=== PATIENT | male | born 1965 | race Caucasian/White ===

== ENCOUNTER 2021-08-12 01:11 | Day surgery (SDC) | payer MEDICARE, SELFPAY ==
[2021-08-04 14:18] VITALS: BMI 39.8
[2021-08-12 06:53] VITALS: BP 191/115; PULSE 77; RESP 20; TEMP 36.3; O2SAT 98; BMI 38.5
[2021-08-12] MEDS: LACTATED RINGERS 1,000 ML 150 ML IV CONT (07:09)
[2021-08-12 07:11] VITALS: BP 149/72
[2021-08-12 07:11] LABS: Glucose Point of Care 163 mg/dl (65-105)
--- NOTE | 2021-08-12 07:29 | WPDANESEPPF ---
Anes - Initial Pre Proc Eval Procedure: Operation Date: 08/12/21 08:00 Proposed Procedures p Colonoscopy - Flaco Alonzo MD Date/Time: 08/12/21 07:29 Surgeon: Flaco Alonzo MD Pre Op Diagnosis: rectal bleeding Patient Data Age: 56 Gender: M Height: 1.7 m Weight: 111.4 kg Last Vital Signs Temp 36.3 C L 08/12/21 06:53 Pulse 77 08/12/21 06:53 Resp 20 08/12/21 06:53 BP 149/72 H 08/12/21 07:11 Pulse Ox 98 08/12/21 06:53 Allergies Allergy/AdvReac Type Severity Reaction Status Date / Time No Known Allergies Allergy Verified 08/12/21 06:59 Home Medications Medication Instructions Recorded Confirmed Type aspirin 325 mg PO DAILY 08/04/21 08/04/21 History atorvastatin 80 mg PO DAILY 08/04/21 08/04/21 History bupropion HCl 150 mg PO DAILY 08/04/21 08/04/21 History carvedilol 25 mg PO BID 08/04/21 08/04/21 History clonazepam 0.5 mg PO DAILY 08/04/21 08/04/21 History clopidogrel 75 mg PO DAILY 08/04/21 08/04/21 History empagliflozin [Jardiance] 25 mg PO DAILY 08/04/21 08/04/21 History ezetimibe 10 mg PO DAILY 08/04/21 08/04/21 History furosemide 40 mg PO DAILY 08/04/21 08/04/21 History glimepiride 2 mg PO DAILY 08/04/21 08/04/21 History icosapent ethyl [Vascepa] 1 g PO BID 08/04/21 08/04/21 History losartan 100 mg PO DAILY 08/04/21 08/04/21 History metformin 1,000 mg PO BID 08/04/21 08/04/21 History nitroglycerin 0.4 mg SUBLINGUAL PRN PRN 08/04/21 08/04/21 History omeprazole magnesium [Prilosec OTC] 20 mg PO DAILY 08/04/21 08/04/21 History spironolactone 50 mg PO DAILY 08/04/21 08/04/21 History Laboratory Tests 08/12/21 07:07 POC Capillary Glucose 163 mg/dl H mg/dl (65-105) Patient hx anesthesia problems: none Family hx anesthesia problems: none Results Review: All pre-operative results and documents have been reviewed as part of the pre-operative evaluation. [facility] Past Medical History Medical History (Updated 08/12/21 @ 07:30 by Bi Miguel MD) CAD (coronary artery disease) HTN (hypertension) Hyperlipidemia Obesity SABRINA on CPAP Surgical History Surgical History History of coronary artery stent placement Hx of CABG Social History Social History Smoking packs per day: 1 Smoking cigarettes per day: 20.0 Years smoked: 20 Smoking pack-years: 20.00 Smoking status: Former smoker Tobacco type: cigarettes Alcohol intake: current Substance use: never Substance use type: does not use Living arrangements: with family Spiritual care concerns: No Anes - Eval Final PreProcedure Day of Procedure 08/12/21 07:29 Patient weight: obese Heart: regular rate and rhythm Lungs: clear to auscultation Airway: Mallampati scale class II and special considerations poor dentition Neurological: alert and oriented Last oral intake: >/= 8 hours ASA classification: III Emergent: no Anesthetic plan: proceed Anesthesia type and monitoring: general GIVS and standard monitoring Results Review: All pre-operative results and documents have been reviewed as part of the pre-operative evaluation. Informed Consent: The patient's anesthetic plan and its attendant risks and benefits were discussed with the patient/family/POA. Questions were solicited and answers provided to the satisfaction of the patient/family/POA.
--- NOTE | 2021-08-12 07:47 | PM.HPGS ---
History of Present Illness History of Present Illness Consent: Risks, benefits, and alternatives have been discussed and questions answered. Patient agrees to proceed with procedure. Chief complaint: rectal bleeding Narrative: Calvin Chappell is a 56 year old male here for first colonoscopy, noted intermittent blood with stools, also has chronic loose stool. Cologuard 2019 negative. Review of Systems Constitutional: Constitutional: Denies headache(s) and Denies weakness Eyes: Eyes: Denies blurry vision ENT: Reports Normal hearing present, Denies headache(s) and Denies neck pain Cardiovascular: Cardiovascular: Denies chest pain and Denies dyspnea Respiratory: Respiratory: Denies dyspnea Gastrointestinal: Gastrointestinal: Reports no additional gastrointestinal complaints Genitourinary: Genitourinary: Denies dysuria Musculoskeletal: Musculoskeletal: Denies neck pain Integumentary/Breasts: Skin/Breast: Denies dry skin Neurologic: Reports Normal hearing present, Denies headache(s) and Denies weakness Psychiatric: Psychiatric: Denies anxiety Endocrine: Endocrine: Denies change in body appearance Hematologic/Lymphatic: Hematologic/Lymphatic: Denies easy bleeding Allergic/Immunologic: Allergic/Immunologic: Denies urticaria PMFSH Past Medical History Medical History (Updated 08/12/21 @ 07:48 by Flaco Alonzo MD) Blood in stool CAD (coronary artery disease) HTN (hypertension) Hyperlipidemia Obesity SABRINA on CPAP Surgical History Surgical History History of coronary artery stent placement Hx of CABG Social History Social History Smoking packs per day: 1 Smoking cigarettes per day: 20.0 Years smoked: 20 Smoking pack-years: 20.00 Smoking status: Former smoker Tobacco type: cigarettes Alcohol intake: current Substance use: never Substance use type: does not use Living arrangements: with family Spiritual care concerns: No Meds Home Medications and Allergies Home Medications Medication Instructions Recorded Confirmed Type aspirin 325 mg PO DAILY 08/04/21 08/04/21 History atorvastatin 80 mg PO DAILY 08/04/21 08/04/21 History bupropion HCl 150 mg PO DAILY 08/04/21 08/04/21 History carvedilol 25 mg PO BID 08/04/21 08/04/21 History clonazepam 0.5 mg PO DAILY 08/04/21 08/04/21 History clopidogrel 75 mg PO DAILY 08/04/21 08/04/21 History empagliflozin [Jardiance] 25 mg PO DAILY 08/04/21 08/04/21 History ezetimibe 10 mg PO DAILY 08/04/21 08/04/21 History furosemide 40 mg PO DAILY 08/04/21 08/04/21 History glimepiride 2 mg PO DAILY 08/04/21 08/04/21 History icosapent ethyl [Vascepa] 1 g PO BID 08/04/21 08/04/21 History losartan 100 mg PO DAILY 08/04/21 08/04/21 History metformin 1,000 mg PO BID 08/04/21 08/04/21 History nitroglycerin 0.4 mg SUBLINGUAL PRN PRN 08/04/21 08/04/21 History omeprazole magnesium [Prilosec OTC] 20 mg PO DAILY 08/04/21 08/04/21 History spironolactone 50 mg PO DAILY 08/04/21 08/04/21 History Allergies Allergy/AdvReac Type Severity Reaction Status Date / Time No Known Allergies Allergy Verified 08/12/21 06:59 Vital Signs Vital Signs - 24 hr 08/12/21 06:53 08/12/21 07:11 Temperature 97.3 F L Pulse Rate 77 Respiratory Rate 20 Blood Pressure 191/115 H 149/72 H Pulse Oximetry 98 Exam Const: General: comfortable and no acute distress HENMT: General nose exam: Normal nares present Eyes: General: appearance normal, both eyes and all related structures Neck: Neck: no JVD Resp: Auscultation: clear to auscultation bilaterally Cardio: Rate: regular rate Rhythm: regular rhythm GI: Inspection: non-distended GI Palp: Yes Soft to palpation Skin: General skin exam: normal color Neuro: General: gait normal Speech: normal speech Extrem: General: normal to inspection Psych: Mental Status: mental status grossly normal Assessment and Plan Assessment and plan (1
[2021-08-12 08:11] VITALS: BP 142/84; PULSE 76; RESP 16; O2SAT 94
[2021-08-12 08:21] VITALS: BP 141/91; PULSE 67; RESP 16; O2SAT 97
[2021-08-12 08:31] VITALS: BP 139/90; PULSE 64; RESP 18; O2SAT 95
--- NOTE | 2021-08-12 08:40 | SUR.PHASEII ---
Orders received from Dr. Velasco for pt to resume Plavix in 3 days. Pt and spouse state understanding.
== END 2021-08-12 08:43 | disposition home or self-care (01) ==
PROVIDERS: PCP Internal Medicine; Visit Provider Internal Medicine Gastroenterology
PROC: 0DJD8ZZ Inspection of Lower Intestinal Tract, Via Natural or Artificial Opening Endoscopic (ICD-10-PCS; CPT 45378; principal; 2021-08-12 08:00)
DX: Z12.11 Encounter for screening for malignant neoplasm of colon (principal); R19.7 Diarrhea, unspecified; K92.1 Melena; D12.3 Benign neoplasm of transverse colon; K57.30 Diverticulosis of large intestine without perforation or abscess without bleeding; K64.8 Other hemorrhoids; I25.10 Atherosclerotic heart disease of native coronary artery without angina pectoris; I10 Essential (primary) hypertension; E78.5 Hyperlipidemia, unspecified; G47.33 Obstructive sleep apnea (adult) (pediatric); E66.9 Obesity, unspecified; Z68.38 Body mass index [BMI] 38.0-38.9, adult; Z79.82 Long term (current) use of aspirin; Z79.02 Long term (current) use of antithrombotics/antiplatelets; Z79.84 Long term (current) use of oral hypoglycemic drugs; Z95.1 Presence of aortocoronary bypass graft; Z95.5 Presence of coronary angioplasty implant and graft; Z87.891 Personal history of nicotine dependence
CPT/HCPCS: 45385; 45380; 82948; 88305; J2704; J7120

== ENCOUNTER → 2022-08-02 09:37 | Outpatient (CLI) | payer MEDICARE, SELFPAY ==
--- NOTE | ~2022-08-02 | MR_ITS ---
EXAMINATION: MR thoracic spine wo/w con DATE: 08/02/2022 10:53 INDICATION: Thoracic radiculopathy. TECHNIQUE: Magnetic resonance imaging (MRI) of the thoracic spine was performed without and with 20 m L MultiHance intravenous contrast. COMPARISON: None FINDINGS: There is 8 degrees dextrocurvature of thoracic spine. There is mild chronic anterior wedgin g of T7-T12 vertebral bodies. There is a hemangioma in T2 vertebral body. There is mildly decreased d isc height at T9-T10. There is multilevel facet joint osteoarthritis, severe at many levels. There is multilevel mild neural foraminal stenosis bilaterally. On the left, there is moderate neural foramin al stenosis at T9-T10. At T8-T9, there is a central extrusion with mild central canal stenosis. In th e spinal cord at T3 on the right, there is a lesion of increased T2-weighted signal intensity measuri ng 4 mm with surrounding decreased T2-weighted signal intensity. There is less well-defined increased T2-weighted signal intensity in the spinal cord extending superiorly to T2. No contrast enhancement. IMPRESSION: 1. Spinal cord lesion at T2 and T3. The differential diagnosis includes chronic contusion-hematoma an d cavernous malformation. 2. Mild thoracic spondylosis. Reviewed, dictated and finalized at location A. IMPRESSION: 1. Spinal cord lesion at T2 and T3. The differential diagnosis includes chronic contusion-hematoma and cavernous malformation. 2. Mild thoracic spondylosis.
== END ==
PROVIDERS: PCP Internal Medicine; Visit Provider Internal Medicine
DX: M47.24 Other spondylosis with radiculopathy, thoracic region (principal)
CPT/HCPCS: 72157; A9577